=== PATIENT | female | born 1970 | race Caucasian/White ===

== ENCOUNTER → 2019-10-30 | Outpatient (CLI) | payer BC, OTHER ==
--- NOTE | 2019-10-30 13:41 | MRI ---
EXAM DESCRIPTION: Brain w/oContrast CLINICAL HISTORY: 49 years Female, UNSPECIFIED VISUAL DISTURBANCE COMPARISON: None available. TECHNIQUE: Multiplanar multiecho imaging of the brain was performed without the administration of intravenous contrast. FINDINGS: No acute major vascular territorial infarct or acute intraparenchymal hemorrhage. No intra-axial or extra-axial fluid collections are identified. The cisterns and ventricles appear normal in caliber. The sella and suprasellar regions demonstrate no gross abnormality. The structures of the posterior fossa are intact. The visualized paranasal sinuses and mastoid air cells appear normal. The globes are intact bilaterally. Review of the bones demonstrates no gross abnormality. IMPRESSION: Unremarkable MRI of the brain. Electronically signed by: Phyllis Warren MD 10/30/2019 1:39 PM CDT
== END ==
LOC: MRI 09:44
PROVIDERS: ATTEND Family Medicine
DX: H53.9 Unspecified visual disturbance (principal); R42 Dizziness and giddiness

== ENCOUNTER → 2019-11-06 | Outpatient (CLI) | payer OTHER ==
--- NOTE | 2019-11-06 11:03 | US ---
EXAM DESCRIPTION: Abdomen,Limited: ULTRASOUND. CLINICAL HISTORY: ABNORMAL RESULTS OF LIVER FUNCTION STUDIES COMPARISON: None. TECHNIQUE: Transabdominal scanning: fitzgerald-scale mode. Doppler mode. FINDINGS: Gallbladder: normal size, shape, echogenicity; no intraluminal stones or sludge. No fluid around the gallbladder. No wall thickening. 1.6 mm Non-tender with transducer pressure. Common bile duct: caliber 6.7 mm within normal limits. Liver: Increased echogenicity; contour liver capsule smooth where seen. No fluid around the liver. Intrahepatic biliary ducts normal caliber. Doppler hepatopedal flow and normal caliber portal vein, 11 mm.. Long axis right lobe 18.1 cm. Pancreas: normal size and echogenicity. Duct not seen. Proximal abdominal aorta: 1.9 cm normal caliber. Atherosclerotic changes.. IVC: visualized and normal caliber. Right kidney: long axis measures 10.6 cm. Volume 140.7 mL. Normal cortical Echogenicity. Normal cortical thickness. No echogenic stones or hydronephrosis. Spleen: Normal echogenicity. Long axis measures 10.7 cm. No ascites. IMPRESSION: 1. Fatty liver and borderline enlarged. Normal vascularity. Remainder the liver is unremarkable. Pancreas is negative. 2. Gallbladder and common bile duct are unremarkable. 3. Negative findings in the gallbladder and borderline enlarged caliber of the common bile duct. Normal caliber of the IVC and proximal abdominal aorta which also demonstrates atherosclerotic changes. Electronically signed by: Austin Daniel MD 11/06/2019 11:02 AM CDT
== END ==
LOC: US 07:44
PROVIDERS: ATTEND Family Medicine
DX: K76.0 Fatty (change of) liver, not elsewhere classified (principal); I70.0 Atherosclerosis of aorta